=== PATIENT | female | born 1960 | race Caucasian/White ===

== ENCOUNTER → 2017-04-29 | Outpatient (CLI) | payer OTHER ==
[2017-04-29 12:48] LABS: Basophils % (A) 0 %; CH 33.1; CHCM 33.6; Eosinophils # (A) 0.1 k/uL (0-0.7); Eosinophils % (A) 1 %; HCT 40.6 % (34.0-46.0); HDW 2.23; HGB 13.4 gm/dL (11.4-16.0); Luc # (Auto) 0.14; Luc % (Auto) 2; Lymphocytes # (A) 1.7 k/uL (1.0-4.8); Lymphocytes % (A) 19 %; MCH 32.6 pg (25.0-35.0); MCV 98.7 fL (80.0-100.0); Mean Platelet Volume 6.7; Monocytes # (A) 0.6 k/uL (0-1.0); Monocytes % (A) 6 %; Neutrophils # (A) 6.5 k/uL (1.3-7.7); Neutrophils % (A) 72 %; RBC 4.11 m/uL (3.80-5.40); RDW 12.5 % (11.5-15.5); WBC (Perox) 8.64
[2017-04-29 12:57] LABS: Anion Gap 13 mmol/L; Blood Urea Nitrogen 13 mg/dL (7-17); C Reactive Protein 7.4 mg/L (<10.0); Calcium 10.1 mg/dL (8.4-10.2); Carbon Dioxide 22 mmol/L (22-30); Chloride 99 mmol/L (98-107); Glucose 103 mg/dL (74-99); Non-African American GFR(MDRD) >60 (>60 ml/min/1.73 sqM); Potassium 4.2 mmol/L (3.5-5.1); Rheumatoid Factor, Qnt <9 IU/mL (<12); Sodium 134 mmol/L (137-145); Uric Acid 6.5 mg/dL (3.7-7.4)
[2017-04-29 14:12] LABS: Erythrocyte Sedimentation Rate 28 mm/hr (0-20)
[2017-04-29 20:16] LABS: ANA w/Reflex to Titer NEGATIVE (NEGATIVE); Cyclic Citrull Pep IgG Unit <0.5 U/mL; Cyclic Citrullinated Pep IgG NEGATIVE (NEGATIVE)
== END | disposition home or self-care (01) ==
LOC: LABWHC1 11:45
PROVIDERS: ATTEND Orthopaedic Surgery
DX: M16.11 Unilateral primary osteoarthritis, right hip (principal); M47.816 Spondylosis without myelopathy or radiculopathy, lumbar region
CPT/HCPCS: 36415; 80048; 82164; 82306; 84550; 85025; 85652; 86038; 86140; 86200; 86431

== ENCOUNTER → 2017-07-15 | Outpatient (CLI) | payer OTHER ==
[2017-07-15 16:57] LABS: HCT 40.1 % (34.0-46.0); HGB 13.5 gm/dL (11.4-16.0); MCH 32.1 pg (25.0-35.0); MCHC 33.7 g/dL (31.0-37.0); MCV 95.2 fL (80.0-100.0); Mean Platelet Volume 7.1; Platelet Count 277 k/uL (150-450); RBC 4.21 m/uL (3.80-5.40); RDW 14.6 % (11.5-15.5); WBC 10.1 k/uL (3.8-10.6)
[2017-07-15 17:01] LABS: Appearance,Urine Clear (Clear); Bilirubin,Urine Negative (Negative); Blood,Urine Negative (Negative); Color,Urine Light Yellow; Glucose,Urine (UA) Negative (Negative); Ketones,Urine Negative (Negative); Leukocyte Esterase,Urine Negative (Negative); Nitrite,Urine Negative (Negative); PH, Urine 5.5 (5.0-8.0); Protein,Urine Negative (Negative); Specific Gravity,Urine 1.006 (1.001-1.035); Urobilinogen,Urine <2.0 mg/dL (<2.0)
[2017-07-15 17:07] LABS: INR 0.9 (<1.2); Prothrombin Time 9.4 sec (9.0-12.0)
[2017-07-15 17:18] LABS: ALT 47 U/L (9-52); AST 42 U/L (14-36); Albumin 4.7 g/dL (3.5-5.0); Alkaline Phosphatase 115 U/L (38-126); Anion Gap 13 mmol/L; Blood Urea Nitrogen 10 mg/dL (7-17); Calcium 10.5 mg/dL (8.4-10.2); Carbon Dioxide 27 mmol/L (22-30); Chloride 100 mmol/L (98-107); Glucose 127 mg/dL (74-99); Potassium 3.7 mmol/L (3.5-5.1); Sodium 140 mmol/L (137-145); Total Bilirubin 0.8 mg/dL (0.2-1.3); Total Protein 7.5 g/dL (6.3-8.2)
== END | disposition home or self-care (01) ==
LOC: LABPAT 15:57
PROVIDERS: ATTEND Orthopaedic Surgery
DX: Z01.812 Encounter for preprocedural laboratory examination (principal)
CPT/HCPCS: 80053; 81003; 85027; 85610; 85730; 87070

== ENCOUNTER 2017-07-26 10:48 | Inpatient (IN) | payer OTHER ==
[2017-07-21 08:14] VITALS: BMI 25.5
[~2017-07-26 10:48] MED LIST: ACETAMINOPHEN TAB 500 MG TAB PO ONE; DEXAMETHASONE SOD PHOSPHATE 10 MG/ML 1 ML VIAL IV ONE; HYDROmorphone 0.5 MG/0.5 ML SYRINGE IVP PRN; LACTATED RINGERS 1,000 ML IV SCH; LIDOCAINE 1% 20 ML VIAL (10MG/ML) FOR IV START INTRADERMA PRN; MELOXICAM 7.5 MG TAB PO ONE; MIDAZOLAM 2 MG/2 ML VIAL IV PRN; ONDANSETRON 4 MG/2 ML VIAL IVP ONE; SCOPOLAMINE 1.5MG/72HR PATCH TRANSDERM ONE; TRANEXAMIC ACID 1,000 MG in SODIUM CHLORIDE 0.9% 50 ML IVPB ONE; ceFAZolin 2 GM in SODIUM CHLORIDE 0.9% 100 ML IVPB ONE; ceFAZolin IN SWFI 2 GM/20 ML SYRINGE IVP ONE
[2017-07-26] MEDS ORDERED: ROPIVACAINE 246.25 MG, EPINEPHrine 0.5 MG, KETOROLAC 30 MG, cloNIDine HCL/PF 80 MCG, WA... MISCELLANE ONE ×5 (12:56)
[2017-07-26] MEDS ORDERED: fentaNYL (PF) 50 MCG/ML 2 ML AMP ONE (13:21)
[2017-07-26] MEDS ORDERED: PHENYLEPHRINE-0.9% NACL SYG 1 MG/10 ML SYRINGE ONE (13:21)
[2017-07-26] MEDS ORDERED: SODIUM CHLORIDE 0.9% 100 ML BAG ONE (13:21)
[2017-07-26] MEDS ORDERED: ePHEDrine 50 MG/ML 1 ML AMP ONE (13:21)
[2017-07-26] MEDS ORDERED: LIDOCAINE 1% INJ 10MG/ML (20 ML MDV) ONE (13:21)
[2017-07-26] MEDS ORDERED: TRANEXAMIC ACID 1,000 MG/10 ML VIAL ONE (13:21)
[2017-07-26] MEDS ORDERED: MIDAZOLAM 2 MG/2 ML VIAL ONE (13:21)
[2017-07-26] MEDS ORDERED: diphenhydrAMINE 50 MG/ML 1 ML VIAL ONE (13:21)
[2017-07-26] MEDS ORDERED: PROPOFOL 10 MG/ML 20 ML VIAL IV ONE (13:21)
[2017-07-26] MEDS ORDERED: LACTATED RINGERS 1,000 ML IV ONE (15:16)
[2017-07-26] MEDS ORDERED: ACETAMINOPHEN TAB 325 MG TAB PO PRN (15:21)
[2017-07-26] MEDS ORDERED: HYDROcodone/APAP 5-325MG 1 EACH TAB PO PRN (15:21)
[2017-07-26] MEDS ORDERED: HYDROmorphone 2 MG/ML 1 ML SYRINGE IVP PRN ×2 (15:21)
[2017-07-26] MEDS ORDERED: MAGNESIUM HYDROXIDE 2,400 MG/10 ML CUP PO PRN (15:21)
[2017-07-26] MEDS ORDERED: NALOXONE 0.4 MG/ML 1 ML VIAL IV PRN (15:21)
[2017-07-26] MEDS ORDERED: DIAZEPAM 5 MG TAB PO PRN (15:21)
[2017-07-26 15:32] VITALS: RESP 16
[2017-07-26] MEDS: MORPHINE SULFATE 10 MG/ML SYRINGE IVP ONE ×5 (15:43→16:09)
--- NOTE | 2017-07-26 15:46 | XR ---
EXAMINATION TYPE: XR Hip Limited RT DATE OF EXAM: 07/26/2017 CLINICAL HISTORY: Right hip pain and osteoarthritis. TECHNIQUE: Single AP portable view of right hip is obtained immediately postoperatively. COMPARISON: None. FINDINGS: Metallic hardware from right hip arthroplasty is seen and appears satisfactory in alignment and position. There is evidence of recent surgery with subcutaneous gas noted laterally. IMPRESSION: Metallic hardware from right hip arthroplasty is satisfactory in position.
--- NOTE | 2017-07-26 16:29 | P.OP ---
Date of Procedure: 07/26/17 Procedure(s) Performed: PREOPERATIVE DIAGNOSIS: Right hip severe osteoarthritis POSTOPERATIVE DIAGNOSIS: Right hip severe osteoarthritis OPERATION: Right hip total replacement arthroplasty (uncemented implantation with metal on polyethylene articulation). ANESTHESIA: Spinal ESTIMATED BLOOD LOSS: 150 ml. PIANO ASSEMBLER: Celine Plaza PA-C (assistance with: patient positioning, retraction, exposure, hemostasis, leg positioning, implantation, irrigation, closure, dressing) COMPLICATIONS: None apparent. COMPONENTS IMPLANTED: Kita continuum acetabular cup with cluster holes; continuum longevity 15 elevated liner, 32 mm id; Kita VerSys Fiber Metal stem ; VerSys 32 mm femoral head with +7 mm neck length extension INDICATIONS: Anle is a 56-year-old female with significant end-stage osteoarthritis involving the right hip and commensurate severe symptoms. She presents to the operating room today for total hip replacement. I have discussed the steps of the operation as well as potential risks and complications as being inclusive of, but not limited to: Leading, infection, scarring, discomfort, or vessel and/or nerve damage, need for further surgery, loosening, dislocation, wear, osteolysis, limb length inequality, fracture, blood clot, pulmonary embolism, , persistent limp, and other risks. The patient is aware these risks and wishes to proceed with surgery and has signed a consent form. PROCEDURE: After appropriate consent was obtained, the patient was taken to the operating room and placed in supine position. Spinal anesthetic was administered and after confirmation of adequate anesthesia, the patient was placed into the lateral decubitus position with the right side up. Care was taken to make sure that all pressure points were adequately padded and he was stabilized to the table with a Jarred hip positioner. The right hip was prepped and draped in the usual aseptic fashion using a combination of ChloraPrep and alcohol. [place] drape was used for the case and the patient received intravenous antibiotics prior to the incision. "Time out" was called , confirming patient identity, side, procedure, availability of implants and administration of antibiotics. The incision was created directly over the greater trochanter and carried slightly posteriorly for a posterior approach to the hip. The incision was then deepened down to subcutaneous tissue and fascia damaris. Fascia damaris was split in line with the incision and split proximally along the fibers of the gluteus anabell. The underlying fibers of the muscle were teased apart using finger dissection and bleeding vessels were picked up and coagulated. Retractor was then placed posteriorly consisting of a blunt [place]. The short external rotators and capsule were exposed using good visualization of the attachment of the external rotators to the femur was established. The short external rotators and capsule were released using electrocautery from their femoral attachments. A hockey stick shaped incision was created in the capsule. Joint fluid was evacuated and the patient's hip was able to be dislocated fairly easily. The patient's femoral head was severely arthritic with eburnated bone present and a 360 degrees [place] of osteophytes. The femoral neck cut was created approximately 1 cm superior to the lesser trochanter using a reciprocating saw. The femoral head and neck fragment was removed and attention was then directed to the acetabulum. An anterior acetabular retractor was applied followed by posterior retraction of the capsule with a Meyer[place] retractor. This afforded good visualization into the acetabular cavity. Soft tissue was removed and residual cartilage within the acetabular vault was removed using a curette. Labrum was removed using a long-handled knife. Attention was then directed to reaming. The size 44 reamer was used first, followed by increasing increments until the final size reamer was used. Please see the implantation sheet for exact sizes used for the components. Once the final reamer had been utilized to expand the socket it was noted that there was a good supportive bone around the acetabular socket and no further reaming needed to be performed. The trial the same size as the last reamer used was then impacted into the acetabular vault and found to have good fit. The acetabular component, one size (2mm) greater than the trial was then called for. The cluster holes were placed posteriorly and the component was impacted in a position of approximately 40 degrees abduction and 20 degrees anteversion. This matched this patient's [place] anteversion and it was noted that the cup had excellent stability without need for additional screw fixation. Attention was then directed to the acetabular liner. The anteversion and abduction angle of the component was noted to be very good. A 15 elevated liner was used and locked into position with the elevation posterior superior. Osteophytes around the posterior and inferior aspect of the acetabulum were trimmed as necessary to prevent any impingement. Attention was then directed back to the proximal femur. Retractors were placed around the proximal femur and box osteotome was used followed by canal finder and trochanteric reamer. Cylindrical reaming was performed. Progressive broaching was then performed starting with a #10 broach and progressing final size, in a position of 15 degrees anteversion. [place] anteversion was within 5 degrees of stem position. The final size broach had excellent fit and fill of the patient's metaphysis and diaphysis. Trial reduction was then performed starting with size 32 mm femoral head and various neck combination of stability , limb length equality, and soft tissue tension. Trial components were then removed. The canal was lavaged and the final size femoral stem component was impacted into position. The implant fit very well and had excellent stability. The femoral head was then impacted onto the Armas taper. Blood and debris were removed from the acetabular component and the hip was then reduced and checked for stability, limb length and soft tissue tension. These parameters found to be satisfactory, the wound was then thoroughly irrigated with normal saline. Final hemostasis was obtained using electrocautery and IV tranexamic acid, 1 g given at the time of prepping and draping, and another 1 g given at the time of closure. Local anesthetic solution consisting of ropivacaine with epinephrine, clonidine, and ketorolac was also used throughout the case targeting the capsule , fascia, and skin. Closure of the capsule was performed meticulously using #3 Vicryl suture. Four [id number] sutures were placed in the posterior capsule along with repair of the external rotators. The fascia damaris was then repaired using combination of #3 Vicryl suture in interrupted fashion and Quill and running fashion. 2-0 Vicryl suture was used for the subcutaneous tissues and 3-0 Quill for the skin. Dermabond or Steri-Strips were then applied. The patient tolerated the procedure well. There were no complications and the wound bed was dry and there was no need for drain placement. Sterile dressing was then applied and the patient was carefully removed from the operating room table , placed on the stretcher and was taken to the recovery room in stable condition. Sponge and needle counts were correct.
[2017-07-26] MEDS ORDERED: SYMBICORT 160-4.5 MCG INHALER INHALATION PRN (18:33)
[2017-07-26] MEDS ORDERED: traMADol 50 MG TAB PO PRN (18:33)
[2017-07-26] MEDS: LACTATED RINGERS 1,000 ML IV SCH (19:40)
[2017-07-26] MEDS: hydrOXYzine PAMOATE 25 MG CAP PO PRN (19:40)
[2017-07-26] MEDS: MONTELUKAST 10 MG TAB PO SCH (19:40)
[2017-07-26] MEDS: HYDROcodone/APAP 5-325MG 1 EACH TAB PO PRN (19:41)
[2017-07-26] MEDS: SENNOSIDES-DOCUSATE SODIUM 1 EACH TAB PO SCH (19:41)
[2017-07-26] MEDS: ceFAZolin IN SWFI 2 GM/20 ML SYRINGE IVP SCH (20:25)
[2017-07-26] MEDS ORDERED: ALPRAZolam 0.25 MG TAB PO PRN (20:54)
[2017-07-26] MEDS ORDERED: oxyCODONE ER 10 MG TAB.ER.12H PO SCH (21:00)
--- NOTE | 2017-07-26 21:50 | CONS ---
CONSULTATION REASON FOR CONSULTATION: Advice regarding asthma and other multiple medical issues requested by Dr. Bah. HISTORY OF PRESENT ILLNESS: This 56-year-old woman with a past medical history of multiple medical problems including asthma, GERD, hypertension, DJD being followed by primary physician in the outpatient setting was admitted after right total hip joint arthroplasty by Dr. Bah. There is no history of fever, rigors or chills. No headache, loss of consciousness, and, nausea and vomiting or diarrhea, fever at this time. PAST HISTORY: Asthma, GERD, hypertension, DJD, history of hypothyroidism. MEDICATIONS: Prior to admission include home medications are as follows: 1. Ultram 50 mg q.6h p.r.n. 2. Prilosec 20 mg with breakfast. 3. Aleve 220 mcg b.i.d. p.r.n. 4. Multivitamin 1 p.o. daily. 5. Singular 10 mg q.h.s. 6. Zestoretic 1 tab p.o. daily. 7. Synthroid 50 mcg p.o. daily. 8. Lasix 40 mg. 9. Temovate 1 application daily. 10.Vitamin D3 2000 q.h.s. 11.Symbicort 160/4.5 two puffs b.i.d. 12.Biotin 5 mg p.o. daily. 13.Senokot-S 1 tab p.o. b.i.d. 14.[place] 5 mg 1 tablets q.4h p.r.n. 15.Arixtra 2.5 mg p.o. subcu daily. 16.Aspirin 325 mg p.o. b.i.d. ALLERGIES: LATEX. FAMILY HISTORY: History of cancer in the family. SOCIAL HISTORY: History of smoking on a daily basis. Occasional alcohol intake. REVIEW OF SYSTEMS: No diminished. No diminished hearing. Cardiovascular: No angina. Respirations: No cough or hemoptysis. GI no nausea or vomiting. no dysuria. Nervous system: No numbness or weakness. Allergy/Immunology: No asthma or hayfever. Musculoskeletal as mentioned earlier. Dermatology: Negative. Rheumatology: Negative. Hematology/Oncology: No history of anemia. Endocrine: Hypothyroidism. Constitutional: As mentioned earlier. DERMATOLOGY: Negative. Rheumatology: Negative. Psychiatric: As mentioned earlier. PHYSICAL EXAM: Patient is alert, oriented x3. Pulse is 81. Blood pressure 90/52, respirations 16, temperature 97.8, pulse ox 94% on room air. HEENT: Conjunctivae normal. Neck is no jugular venous distention. Cardiovascular: S1, S2. Respiratory: Breath sounds diminished in the bases. No rhonchi. No crackles. ABDOMEN: Soft. Legs status post surgery. Central nervous system: Higher functions as mentioned earlier. Moves all four extremities. No focal deficits. Lymphatics: No lymph nodes palpable in the neck, axillae or groin. SKIN: No ulcer, rash or bleeding. LABS: CBC BMP within normal limits. ASSESSMENT: 1. Status post right total hip the age arthroplasty for severe degenerative joint disease. 2. Asthma history. 3. Hypertension. 4. Degenerative joint disease. 5. Hypothyroidism. 6. History of bowel obstruction. 7. History of anxiety. 8. History of nicotine dependence. RECOMMENDATIONS AND DISCUSSION: This 56-year-old woman who presented with multiple medical issues, at this time I recommend to continue current medications, continue symptomatic treatment. Otherwise, I recommend to resume the home medications. Also recommend add Xanax for anxiety. Otherwise, DVT prophylaxis. Incentive spirometry. Follow the patient closely. The patient may be asked to follow up with primary physician closely. Thank you Dr. Bah, for letting us participate in the care of this patient. MMODL / IJN: [id number] /
[2017-07-27] MEDS: HYDROmorphone 2 MG/ML 1 ML SYRINGE IVP PRN ×2 (00:29→04:34)
[2017-07-27] MEDS: LACTATED RINGERS 1,000 ML IV SCH ×3 (00:31→21:53)
[2017-07-27] MEDS: diphenhydrAMINE 25 MG CAP PO PRN ×3 (01:05→18:00)
[2017-07-27] MEDS: ceFAZolin IN SWFI 2 GM/20 ML SYRINGE IVP SCH (04:37)
[2017-07-27] MEDS: LEVOTHYROXINE 50 MCG TAB PO SCH ×2 (05:19→05:30)
[2017-07-27 07:20] LABS: Anion Gap 10 mmol/L; Basophils % (A) 0 %; Blood Urea Nitrogen 13 mg/dL (7-17); Calcium 10.3 mg/dL (8.4-10.2); Carbon Dioxide 26 mmol/L (22-30); Chloride 100 mmol/L (98-107); Eosinophils % (A) 0 %; Glucose 125 mg/dL (74-99); HCT 34.9 % (34.0-46.0); HGB 11.8 gm/dL (11.4-16.0); Lymphocytes # (A) 0.8 k/uL (1.0-4.8); Lymphocytes % (A) 6 %; MCH 33.5 pg (25.0-35.0); MCHC 33.8 g/dL (31.0-37.0); MCV 99.2 fL (80.0-100.0); Mean Platelet Volume 6.6; Monocytes # (A) 0.9 k/uL (0-1.0); Monocytes % (A) 6 %; Neutrophils # (A) 12.3 k/uL (1.3-7.7); Neutrophils % (A) 87 %; Platelet Count 247 k/uL (150-450); Potassium 4.6 mmol/L (3.5-5.1); RBC 3.52 m/uL (3.80-5.40); Sodium 136 mmol/L (137-145); WBC 14.2 k/uL (3.8-10.6)
[2017-07-27] MEDS: PANTOPRAZOLE 40 MG TABLET PO SCH (07:22)
[2017-07-27] MEDS: MULTIVITAMINS, THERA 1 EACH TAB PO SCH (09:35)
[2017-07-27] MEDS: LISINOPRIL-HCTZ 20-12.5 MG 1 EACH TAB PO SCH (09:35)
[2017-07-27] MEDS: FUROSEMIDE 40 MG TAB PO SCH (09:35)
[2017-07-27] MEDS: HYDROcodone/APAP 5-325MG 1 EACH TAB PO PRN ×2 (09:43→17:59)
[2017-07-27] MEDS: hydrOXYzine PAMOATE 25 MG CAP PO PRN (09:44)
[2017-07-27] MEDS: MELOXICAM 7.5 MG TAB PO SCH (10:11)
[2017-07-27] MEDS: CLOBETASOL PROP 0.05% CR 15GM TOPICAL SCH (10:12)
[2017-07-27] MEDS: FONDAPARINUX 2.5 MG/0.5 ML SYRINGE SQ SCH (10:12)
--- NOTE | 2017-07-27 10:53 | P.PN ---
Subjective Progress Note Date: 07/27/17 Principal diagnosis: Status post right total hip arthroplasty This is a 56 year-old female post left total hip arthroplasty. This is post-op day 1. The patient was evaluated in the recliner chair at the bedside today. The patient denies nausea, vomiting, abdominal pain, shortness of breath, and chest pain this morning. She states her pain is controlled at this time. She states the Cordova does work for her pain but it causes itchiness. The patient has been up with physical therapy. Objective - Vital Signs Vital signs: Vital Signs Temp 98.4 F 07/27/17 07:36 Pulse 69 07/27/17 07:36 Resp 16 07/27/17 07:36 BP 115/62 07/27/17 07:36 Pulse Ox 94 L 07/27/17 02:21 Intake & Output 07/26/17 07/27/17 07/27/17 18:59 06:59 18:59 Intake Total 1250 800 120 Output Total 100 450 Balance 1150 350 120 Weight 76.204 kg Intake: IV 1250 Intake, IV Titration 800 Amount Lactated Ringers 1,000 ml 800 @ 100 mls/hr IV .Q10H WALKER Rx#:[id number] Oral 120 Output: Urine 450 Estimated Blood Loss 100 Other: Voiding Method Bedside Commode - Exam The patient does not appear in acute distress. Alert and orientated x3. Dressing is clean dry and intact. Incision appears fine with no erythema or active drainage. Calf is soft and nontender. Good foot and ankle motion without difficulty. Sensation and circulatory status is intact. - Labs CBC & Chem 7: 07/27/17 06:47 07/27/17 06:47 Labs: Abnormal Lab Results - Last 24 Hours (Table) 07/27/17 07/27/17 Range/Units 06:47 06:47 WBC 14.2 H (3.8-10.6) k/uL RBC 3.52 L (3.80-5.40) m/uL Neutrophils # 12.3 H (1.3-7.7) k/uL Lymphocytes # 0.8 L (1.0-4.8) k/uL Sodium 136 L (137-145) mmol/L Glucose 125 H (74-99) mg/dL Calcium 10.3 H (8.4-10.2) mg/dL Assessment and Plan (1) Primary osteoarthritis of right hip Current Visit: Yes Status: Acute Code(s): M16.11 - UNILATERAL PRIMARY OSTEOARTHRITIS, RIGHT HIP SNOMED Code(s): 474519196 (2) Status post total replacement of right hip Current Visit: Yes Status: Acute Code(s): Z96.641 - PRESENCE OF RIGHT ARTIFICIAL HIP JOINT SNOMED Code(s): 473678570315 Plan: 1. Continue pain control with Cordova and Benadryl 2. Anticoagulation with Arixtra 3. Continue physical therapy and ambulation 4. Anticipate discharge home with homecare tomorrow.
[2017-07-27] MEDS ORDERED: MULTIVITAMINS, THERA 1 EACH TAB PO SCH (12:00)
[2017-07-27] MEDS: SYMBICORT 160-4.5 MCG INHALER INHALATION SCH ×2 (12:11→20:08)
[2017-07-27] MEDS: ALBUTEROL NEBULIZED 2.5 MG/3 ML INHALATION SCH ×3 (12:15→19:49)
[2017-07-27] MEDS ORDERED: HYDROmorphone 4 MG/ML 1 ML SYRINGE IVP PRN ×2 (12:42→12:43)
--- NOTE | 2017-07-27 13:21 | PN ---
PROGRESS NOTE DATE OF SERVICE: 07/27/2017 This 56-year-old woman who was admitted with right joint arthroplasty is complaining of pain. Otherwise no chest pain. No palpitations. No fever. The patient also complains of wheezing. The patient also developed some rash and possible allergic reaction last night. PHYSICAL EXAM: On exam, alert and oriented x3. Pulse 69, blood pressure 115/62, respirations 16 , temperature 98.4, pulse ox 94% on room. HEENT: Conjunctivae normal. Oral mucosa moist. NECK: No jugular venous distention. No lymph node enlargement. CARDIOVASCULAR: S1 and S2 muffled. RESPIRATORY: Breath sounds diminished at the bases. A few scattered rhonchi and crackles. ABDOMEN: Soft, nontender. LEGS: Status post surgery. NERVOUS SYSTEM: Higher function as mentioned. Moves all 4 limbs. No focal motor or sensory deficits. LYMPHATICS: No lymphadenopathy of the neck, axillae or groin. SKIN: No ulcer, rash or bleeding. LAB STUDIES: WBC 14.2. Sodium 136. Calcium is 10.3. ASSESSMENT: 1. Status post right total hip joint arthroplasty for severe degenerative joint disease. 2. Bronchial asthma. 3. Hypertension. 4. Degenerative joint disease. 5. Hypothyroidism. 6. History of bowel obstruction. 7. History of anxiety. 8. History of nicotine dependence. 9. Increased WBC possibly reactive. RECOMMENDATIONS AND DISCUSSION: Recommend to continue current medications. Continue symptomatic treatment. Recommend UA with micro. Course of bronchodilators. Continue to monitor. DVT prophylaxis. Incentive spirometry. Further recommendations to follow. MMODL / IJN: [id number] / MTDD
[2017-07-27 13:51] LABS: Appearance,Urine Clear (Clear); Bilirubin,Urine Negative (Negative); Blood,Urine Negative (Negative); Color,Urine Light Yellow; Glucose,Urine (UA) Negative (Negative); Ketones,Urine Negative (Negative); Leukocyte Esterase,Urine Negative (Negative); Nitrite,Urine Negative (Negative); PH, Urine 5.5 (5.0-8.0); Protein,Urine Negative (Negative); Specific Gravity,Urine 1.005 (1.001-1.035); Urobilinogen,Urine <2.0 mg/dL (<2.0)
[2017-07-27] MEDS: HYDROmorphone 4 MG/ML 1 ML SYRINGE IVP PRN ×2 (14:06→21:47)
[2017-07-27] MEDS ORDERED: SYMBICORT 160-4.5 MCG INHALER INHALATION SCH (20:00)
[2017-07-27] MEDS: SENNOSIDES-DOCUSATE SODIUM 1 EACH TAB PO SCH (21:47)
[2017-07-27] MEDS: MONTELUKAST 10 MG TAB PO SCH (21:47)
[2017-07-27] MEDS ORDERED: TEMAZEPAM 15 MG CAP PO PRN (22:00)
[2017-07-28] MEDS: HYDROmorphone 4 MG/ML 1 ML SYRINGE IVP PRN ×2 (01:40→07:53)
[2017-07-28] MEDS: LEVOTHYROXINE 50 MCG TAB PO SCH (05:53)
[2017-07-28] MEDS: HYDROcodone/APAP 5-325MG 1 EACH TAB PO PRN (05:57)
[2017-07-28] MEDS: diphenhydrAMINE 25 MG CAP PO PRN (05:57)
[2017-07-28] MEDS: ALBUTEROL NEBULIZED 2.5 MG/3 ML INHALATION SCH ×2 (07:14→13:32)
[2017-07-28] MEDS: SYMBICORT 160-4.5 MCG INHALER INHALATION SCH (07:14)
[2017-07-28 07:40] LABS: Basophils % (A) 0 %; Eosinophils # (A) 0.2 k/uL (0-0.7); Eosinophils % (A) 2 %; HCT 32.5 % (34.0-46.0); HGB 10.7 gm/dL (11.4-16.0); Lymphocytes % (A) 22 %; MCH 32.9 pg (25.0-35.0); MCV 99.8 fL (80.0-100.0); Mean Platelet Volume 6.4; Monocytes # (A) 0.8 k/uL (0-1.0); Monocytes % (A) 8 %; Neutrophils % (A) 65 %; Platelet Count 209 k/uL (150-450); RBC 3.26 m/uL (3.80-5.40); RDW 13.1 % (11.5-15.5); WBC 9.1 k/uL (3.8-10.6)
[2017-07-28] MEDS: PANTOPRAZOLE 40 MG TABLET PO SCH (08:56)
[2017-07-28] MEDS: MELOXICAM 7.5 MG TAB PO SCH (08:56)
[2017-07-28] MEDS: FUROSEMIDE 40 MG TAB PO SCH (08:56)
[2017-07-28] MEDS: LISINOPRIL-HCTZ 20-12.5 MG 1 EACH TAB PO SCH (08:56)
[2017-07-28] MEDS: FONDAPARINUX 2.5 MG/0.5 ML SYRINGE SQ SCH (08:56)
[2017-07-28] MEDS: LACTATED RINGERS 1,000 ML IV SCH (10:08)
[2017-07-28] MEDS: CLOBETASOL PROP 0.05% CR 15GM TOPICAL SCH (11:10)
[2017-07-28] MEDS: MULTIVITAMINS, THERA 1 EACH TAB PO SCH (11:10)
[2017-07-28] MEDS ORDERED: HYDROcodone/APAP 7.5-325MG 1 EACH TAB PO PRN ×2 (11:13→11:14)
--- NOTE | 2017-07-28 11:38 | P.DS ---
Providers Date of admission: 07/26/17 10:48 Expected date of discharge: 07/28/17 Attending physician: Devendra Bah Consults: 07/26/17 15:21 Consult Physician Routine Consulting Provider: Ana Pierce Consult Reason/Comments: medical management Do you want consulting provider notified?: Yes Primary care physician: Hua Saul - Discharge Diagnosis(es) (1) Osteoarthritis of right hip Current Visit: Yes Status: Acute (2) Status post total replacement of right hip Current Visit: Yes Status: Acute Hospital Course: This is a 72-year-old female who was last seen in our office with complaint of continued right hip pain. The patient has a known history of degenerative arthritis of the right hip and presents to discuss surgical options. After discussion and consideration the patient elects to proceed with total right hip arthroplasty. She is seen preoperatively by her family physician and cleared for surgery. The patient is admitted to [facility] for total right hip arthroplasty on 07/26/17. The procedure is performed without complication or sequelae. The patient is doing well postoperatively. Vital signs and postoperative labs are stable. The incision looks good with no sign of infection. The patient is ambulating with a walker with minimal assistance. The patient is discharged to home today in good condition. Please see discharge orders. Please refer to the med rec for accurate list of medications. Plan - Discharge Summary Discharge Rx Participant: Yes New Discharge Prescriptions: New Fondaparinux [Arixtra] 2.5 mg SQ DAILY #5 syringe Sennosides-Docusate Sodium [Senokot-S] 1 tab PO BID #60 tablet Aspirin 325 mg PO BID #120 tab HYDROcodone/APAP 7.5-325MG [[place] 7.5-325] 1 - 2 tab PO Q4-6H PRN #90 tab PRN Reason: Pain No Action Montelukast [Singulair] 10 mg PO HS Cholecalciferol [Vitamin D3] 2,000 unit PO HS Omeprazole [PriLOSEC] 20 mg PO AC-BRKFST Levothyroxine Sodium [Synthroid] 50 mcg PO DAILY Budesonide-Formot 160-4.5 Mcg [Symbicort 160-4.5 Mcg Inhaler] 2 puff INHALATION RT-BID PRN PRN Reason: Dyspnea traMADol HCL [Ultram] 50 mg PO Q6HR PRN PRN Reason: Pain Naproxen Sodium [Aleve] 220 mg PO BID PRN PRN Reason: Pain Lisinopril-Hctz 20-12.5 mg [Zestoretic 20-12.5] 1 tab PO DAILY Furosemide [Lasix] 40 mg PO DAILY Multivit-Min/Iron/Folic/Lutein [[place] Silver Women Tablet] 1 tab PO DAILY Clobetasol Propionate [Temovate 0.05% Cream] 1 applic TOPICAL DAILY Biotin 5,000 mcg PO DAILY Discharge Medication List Budesonide-Formot 160-4.5 Mcg [Symbicort 160-4.5 Mcg Inhaler] 2 puff INHALATION RT-BID PRN 08/01/14 [History] Cholecalciferol [Vitamin D3] 2,000 unit PO HS 08/01/14 [History] Levothyroxine Sodium [Synthroid] 50 mcg PO DAILY 08/01/14 [History] Montelukast [Singulair] 10 mg PO HS 08/01/14 [History] Omeprazole [PriLOSEC] 20 mg PO AC-BRKFST 08/01/14 [History] Biotin 5,000 mcg PO DAILY 07/21/17 [History] Clobetasol Propionate [Temovate 0.05% Cream] 1 applic TOPICAL DAILY 07/21/17 [ History] Furosemide [Lasix] 40 mg PO DAILY 07/21/17 [History] Lisinopril-Hctz 20-12.5 mg [Zestoretic 20-12.5] 1 tab PO DAILY 07/21/17 [History ] Multivit-Min/Iron/Folic/Lutein [Centrum Silver Women Tablet] 1 tab PO DAILY [History] Naproxen Sodium [Aleve] 220 mg PO BID PRN 07/21/17 [History] traMADol HCL [Ultram] 50 mg PO Q6HR PRN 07/21/17 [History] Aspirin 325 mg PO BID #120 tab 07/26/17 [Rx] Fondaparinux [Arixtra] 2.5 mg SQ DAILY #5 syringe 07/26/17 [Rx] Sennosides-Docusate Sodium [Senokot-S] 1 tab PO BID #60 tablet 07/26/17 [Rx] HYDROcodone/APAP 7.5-325MG [[place] 7.5-325] 1 - 2 tab PO Q4-6H PRN #90 tab [Rx] Follow up Appointment(s)/Referral(s): Celine Plaza, JUAN F [PHYSICIAN JUDO INSTRUCTOR] - 2 Weeks Activity/Diet/Wound Care/Special Instructions: 50% wt bearing RLE w walker. May shower if no drainage from incision. Maintain hip precautions. Discharge Disposition: HOME WITH HOME HEALTH SERVICES
[2017-07-28] MEDS ORDERED: INFLUENZA VACCINE (6 MOS+) 60 MCG/0.5 ML SYRINGE IM ONE (13:03)
--- NOTE | 2017-07-28 13:19 | PN ---
PROGRESS NOTE DATE OF SERVICE: 07/28/2017 This 56-year-old woman who was admitted after right hip arthroplasty and severe DJD is being closely monitored. No chest pain. No palpitations. No fever. The patient had some pain last night. PHYSICAL EXAMINATION: On exam, alert and oriented x3. Pulse 75, blood pressure 125/68, respirations 16, temperature 98.4, pulse ox 93% room air. HEENT: Conjunctivae normal. NECK: No jugular venous distention. CARDIOVASCULAR: S1 and S2 muffled. RESPIRATORY: Breath sounds diminished at the bases. No rhonchi, no crackles. ABDOMEN: Soft, nontender. LEGS: Status post surgery. NERVOUS SYSTEM: No focal deficits. LABS: WBC 9.1, hemoglobin 10.7. ASSESSMENT: 1. Status post right total hip joint arthroplasty for severe degenerative joint disease. 2. Bronchial asthma. 3. Hypertension. 4. Degenerative joint disease history. 5. Hypothyroidism. 6. History of bowel obstruction. 7. History of anxiety. 8. History of nicotine dependence. 9. Increased WBC possibly reactive improved. RECOMMENDATIONS AND DISCUSSION: Recommend to continue current medications, continue symptomatic treatment. Otherwise at this time, I recommend continue the current pain management, DVT prophylaxis. Resume the home medications if discharged per Ortho. Further recommendations to follow. MMODL / IJN: [id number] /
[2017-07-28 14:15] VITALS: BP 98/61; PULSE 80; TEMP 98.1
[2017-07-28] MEDS ORDERED: HYDROmorphone 2 MG TAB PO PRN ×2 (15:15)
[2017-07-28] MEDS ORDERED: HYDROmorphone 4 MG TABLET PO PRN (15:16)
== END 2017-07-28 15:55 | disposition home health service (06) | DRG 470 ==
LOC: 2ORMAIN 10:48 → 3SUR 15:09
PROVIDERS: ADMIT Orthopaedic Surgery; ATTEND Orthopaedic Surgery
PROC: 0SR902A Replacement of Right Hip Joint with Metal on Polyethylene Synthetic Substitute, Uncemented, Open Approach (ICD-10-PCS; 2017-07-26)
PROC: 3E0234Z Introduction of Serum, Toxoid and Vaccine into Muscle, Percutaneous Approach (ICD-10-PCS; principal; 2017-07-28)
DX: M16.11 Unilateral primary osteoarthritis, right hip (principal); Z96.642 Presence of left artificial hip joint; E03.9 Hypothyroidism, unspecified; I10 Essential (primary) hypertension; Z23 Encounter for immunization; J45.909 Unspecified asthma, uncomplicated; K21.9 Gastro-esophageal reflux disease without esophagitis; R21 Rash and other nonspecific skin eruption; Z79.51 Long term (current) use of inhaled steroids; Z79.899 Other long term (current) drug therapy; Z86.59 Personal history of other mental and behavioral disorders; Z87.891 Personal history of nicotine dependence; Z91.040 Latex allergy status
CPT/HCPCS: 73501; 80048; 81003; 85025; 86850; 86900; 86901; 88300; 90686; 94640

== ENCOUNTER 2018-06-06 20:31 | Emergency (ER) | payer OTHER ==
[2018-06-06 20:46] VITALS: PULSE 94
[2018-06-06] MEDS ORDERED: LIDOCAINE 1% INJ 10MG/ML (20 ML MDV) SQ ONE (21:06)
[2018-06-06] MEDS ORDERED: DIPH,PERTUS(ACELL)TETVAC-LF 0.5 ML VIAL IM ONE (21:19)
[2018-06-06] MEDS ORDERED: HYDROcodone/APAP 7.5-325MG 1 EACH TAB PO ONE (22:12)
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
[2018-06-06 22:47] VITALS: BP 152/74; RESP 18; TEMP 98.2
== END 2018-06-06 22:46 | disposition home or self-care (01) ==
LOC: EC 20:31
DX: S81.812A Laceration without foreign body, left lower leg, initial encounter (principal); Z23 Encounter for immunization; J45.909 Unspecified asthma, uncomplicated; K21.9 Gastro-esophageal reflux disease without esophagitis; I10 Essential (primary) hypertension; M19.90 Unspecified osteoarthritis, unspecified site; E07.9 Disorder of thyroid, unspecified; F41.9 Anxiety disorder, unspecified; F17.200 Nicotine dependence, unspecified, uncomplicated; Z79.899 Other long term (current) drug therapy; Z88.2 Allergy status to sulfonamides; Z91.040 Latex allergy status; W22.8XXA Striking against or struck by other objects, initial encounter; Y93.39 Activity, other involving climbing, rappelling and jumping off
CPT/HCPCS: 90715; 99282; 12001; 90471; J2001

== ENCOUNTER 2018-06-11 09:37 | Emergency (ER) | payer OTHER ==
[2018-06-11 09:41] VITALS: BP 129/79; PULSE 70; RESP 18; TEMP 97.5
[2018-06-11] MEDS ORDERED: CEPHALEXIN 500MG STARTER PACK 4 CAP BTL PO STA (10:11)
--- NOTE | 2018-06-11 10:14 | ED ---
General Adult HPI - General Chief complaint: Recheck/Abnormal Lab/Rx Stated complaint: LEFT LEG INFECTION Time Seen by Provider: 06/11/18 09:56 Source: patient Mode of arrival: ambulatory Limitations: no limitations - History of Present Illness Initial comments: 57-year-old female patient presents to the emergency department today for evaluation of increased redness, swelling, and purulent drainage from a laceration to the left lower leg. Patient states on Wednesday she cut her leg on her vehicle door. She was seen and evaluated in the emergency department did have stitches placed. Patient states over the last couple of days the area surrounding the wound has become inflamed. States that she did start having drainage this morning. She denies any fevers or chills with this. Denies any nausea or vomiting. Denies any history of immunosuppression or diabetes. Patient denies any recent rash, shortness breath, chest pain, abdominal pain, nausea, vomiting, diarrhea, constipation, back pain, numbness, tingling, dizziness, weakness, hematuria, dysuria, urinary urgency, urinary frequency, headache, visual changes, or any other complaints. - Related Data Home Medications Medication Instructions Recorded Confirmed Budesonide-Formot 160-4.5 Mcg 2 puff INHALATION RT-BID PRN 08/01/14 06/06/18 [Symbicort 160-4.5 Mcg Inhaler] Cholecalciferol [Vitamin D3] 2,000 unit PO HS 08/01/14 06/06/18 Levothyroxine Sodium [Synthroid] 50 mcg PO DAILY 08/01/14 06/06/18 Montelukast [Singulair] 10 mg PO HS 08/01/14 06/06/18 Omeprazole [PriLOSEC] 20 mg PO AC-BRKFST 08/01/14 06/06/18 Biotin 5,000 mcg PO DAILY 07/21/17 06/06/18 Clobetasol Propionate [Temovate 1 applic TOPICAL DAILY 07/21/17 06/06/18 0.05% Cream] Furosemide [Lasix] 40 mg PO DAILY 07/21/17 06/06/18 Lisinopril-Hctz 20-12.5 mg 1 tab PO DAILY 07/21/17 06/06/18 [Zestoretic 20-12.5] Multivit-Min/Iron/Folic/Lutein 1 tab PO DAILY 07/21/17 06/06/18 [Centrum Silver Women Tablet] Naproxen Sodium [Aleve] 220 mg PO BID PRN 07/21/17 06/06/18 traMADol HCL [Ultram] 50 mg PO Q6HR PRN 07/21/17 06/06/18 Previous Rx's Medication Instructions Recorded Aspirin 325 mg PO BID #120 tab 07/26/17 Fondaparinux [Arixtra] 2.5 mg SQ DAILY #5 syringe 07/26/17 Sennosides-Docusate Sodium 1 tab PO BID #60 tablet 07/26/17 [Senokot-S] HYDROcodone/APAP 7.5-325MG [[place] 1 - 2 tab PO Q4-6H PRN #90 tab 07/28/17 7.5-325] Ibuprofen 800 mg PO Q8H PRN 7 Days #21 tablet 06/06/18 Cephalexin [Keflex] 500 mg PO Q6H #40 cap 06/11/18 Ibuprofen [Motrin] 600 mg PO Q8HR PRN #30 tab 06/11/18 Allergies Allergy/AdvReac Type Severity Reaction Status Date / Time latex Allergy Anaphylaxis Verified 06/11/18 09:42 Sulfa (Sulfonamide Allergy Anaphylaxis Verified 06/11/18 09:42 Antibiotics) Review of Systems ROS Statement: Those systems with pertinent positive or pertinent negative responses have been documented in the HPI. ROS Other: All systems not noted in ROS Statement are negative. Past Medical History Past Medical History: Asthma, GERD/Reflux, Hypertension, Osteoarthritis (OA), Skin Disorder, Thyroid Disorder Additional Past Medical History / Comment(s): past hx bowel obstruction, hx. eczema-hands, frequent leg swelling History of Any Multi-Drug Resistant Organisms: None Reported Past Surgical History: Appendectomy Additional Past Surgical History / Comment(s): laparotomy to repair lacerated rt iliac artery, esophageal dilation, ovarian cyst removed, TRH Past Anesthesia/Blood Transfusion Reactions: Motion Sickness Past Psychological History: Anxiety Smoking Status: Current every day smoker Past Alcohol Use History: Occasional Past Drug Use History: None Reported - Past Family History Father Family Medical History: Cancer Mother Family Medical History: Deep Vein Thrombosis (DVT) General Exam Limitations: no limitations General appearance: alert, in no apparent distress, other (This is a well- developed, well-nourished adult female patient in no acute distress. Vital signs upon presentation are temperature 97.5F, pulse 70, respirations 18, blood pressure 129/79, pulse ox 97% on room air.) Eye exam: Present: normal appearance, PERRL, EOMI. Absent: scleral icterus, conjunctival injection, periorbital swelling ENT exam: Present: normal exam, normal oropharynx, mucous membranes moist Respiratory exam: Present: normal lung sounds bilaterally. Absent: respiratory distress, wheezes, rales, rhonchi, stridor Cardiovascular Exam: Present: regular rate, normal rhythm, normal heart sounds. Absent: systolic murmur, diastolic murmur, rubs, gallop, clicks Extremities exam: Present: full ROM, normal capillary refill, other (Patient has flap-like laceration well approximated with sutures to the left lower leg. There is surrounding erythema, purulent drainage noted to dressing. There is surrounding tenderness.). Absent: normal inspection, tenderness, pedal edema, joint swelling, calf tenderness Neurological exam: Present: alert, oriented X3, CN II-XII intact Psychiatric exam: Present: normal affect, normal mood Skin exam: Present: warm, dry, intact, normal color. Absent: rash Course Vital Signs 06/11/18 09:39 Temperature 97.5 F L Pulse Rate 70 Respiratory 18 Rate Blood Pressure 129/79 O2 Sat by Pulse 97 Oximetry Medical Decision Making - Medical Decision Making 57-year-old female patient presented to the emergency department today for evaluation of infected laceration to the left lower leg. Physical examination did reveal a laceration well approximated with sutures. There is surrounding erythema and presence of purulent drainage and a dressing. Patient is afebrile , vital signs stable. We will start Keflex. This has been cultured. She is instructed to follow-up with her primary care physician for recheck of the wound in 1-2 days. Return parameters were discussed in detail. She verbalizes understanding and agrees with this plan. Disposition Clinical Impression: Laceration of left lower leg with infection Disposition: HOME SELF-CARE Condition: Good Instructions: Wound Infection (ED) Additional Instructions: Keep wound clean and dry. Change dressing when it becomes soiled. Complete antibiotic prescription in full. Monitor for increasing redness and pain. Follow up with your physician for recheck in 1-2 days. Return immediately for any new, worsening, or concerning symptoms. Prescriptions: Cephalexin [Keflex] 500 mg PO Q6H #40 cap Ibuprofen [Motrin] 600 mg PO Q8HR PRN #30 tab PRN Reason: Pain Is patient prescribed a controlled substance at d/c from ED?: No Referrals: Hua Saul DO [Primary Care Provider] - 1-2 days Time of Disposition: 10:13
== END 2018-06-11 10:24 | disposition home or self-care (01) ==
LOC: EC 09:37
DX: T81.49XA Infection following a procedure, other surgical site, initial encounter (principal); J45.909 Unspecified asthma, uncomplicated; I10 Essential (primary) hypertension; K21.9 Gastro-esophageal reflux disease without esophagitis; E07.9 Disorder of thyroid, unspecified; F17.200 Nicotine dependence, unspecified, uncomplicated; Z88.2 Allergy status to sulfonamides; Z91.040 Latex allergy status; Z79.52 Long term (current) use of systemic steroids; Z79.899 Other long term (current) drug therapy; Z87.2 Personal history of diseases of the skin and subcutaneous tissue
CPT/HCPCS: 87070; 87205; 99284

== ENCOUNTER 2021-04-11 10:12 | Day surgery (SDC) | payer OTHER ==
[2021-04-09 11:52] VITALS: BMI 24.3
[2021-04-11 10:40] VITALS: RESP 16; TEMP 97.6
[2021-04-11] MEDS: LACTATED RINGERS 1,000 ML IV SCH ×2 (10:49→11:56)
[2021-04-11] MEDS ORDERED: LIDOCAINE 1% INJ 10MG/ML (20 ML MDV) ONE (11:56)
[2021-04-11] MEDS ORDERED: PROPOFOL 10 MG/ML 20 ML VIAL IV ONE (11:56)
--- NOTE | 2021-04-11 12:22 | P.PCN ---
Date of Procedure: 04/11/21 Procedure(s) Performed: Brief history: Patient is a pleasant 60-year-old white female scheduled for an elective upper endoscopy as well as colonoscopy as a part of evaluation of GERD and rectal bleeding with diarrhea for the last 2 years duration. Procedure performed: Esophagogastroduodenoscopy with biopsy Colonoscopy with snare polypectomy Preoperative diagnosis: GERD Diarrhea and rectal bleeding of 2 years duration Anesthesia: MAC Procedure: After informed consent was obtained from the patient was brought into the endoscopy unit and IV sedation was administered by anesthesia under continuous monitoring. Initially upper endoscopy was done. The Olympus GF 160 video endoscope was inserted inserted into the mouth and esophagus intubated without any difficulty and was gradually advanced into the stomach and duodenum and carefully examined. The bulb and second part of the duodenum appeared normal. Biopsies were done from the duodenum to rule out celiac disease. The scope was then withdrawn into the stomach adequately insufflated with air and upon careful examination the antrum had mild gastritis and biopsies were done from this area. The body, cardia and fundus appeared normal. The scope was then withdrawn into the esophagus. The GE junction was located at 40 cm to the incisors. It appeared regular with no erythema erosions or ulcerations. Rest of the esophagus appeared normal. Patient tolerated the procedure well. At this time the patient continued to remain sedation. Initial digital rectal examination was normal. Olympus CF 160 video colonoscope was then inserted into the rectum and gradually advanced to the cecum without any difficulty. Careful examination was performed as the scope was gradually being withdrawn. The prep wasfair.The cecum, ascending colon, transverse colon, descending colon, appeared normal. In the distal sigmoid colon at 35 cm from anal was there was a 2 cm pegylated polyp removed by snare polypectomy. There are scattered sigmoid diverticulosis seen. In the rectum there was a 7-8 mm polyp removed by snare polypectomy. Rest of the sigmoid colon and rectum appeared normal. Retroflexion was performed in the rectum andgrade 2 internal hemorrhoidsre noted. Patient tolerated the procedure well. Impression: 1. Upper endoscopy revealed mild antral gastritis but no evidence of esophagitis or peptic ulcer disease 2. Colonoscopy revealed 2 cm pedunculated sigmoid colon polyp status post polypectomy and 1 cm distal rectal polyp status post polypectomy, moderate sigmoid diverticulosis and grade 2 internal hemorrhoids Recommendations: Findings of this examination were discussed with the patient as well as her family. She was advised to follow with the biopsy results. The biopsy reveals adenoma she can have a repeat colonoscopy in 3 years
[2021-04-11 12:41] VITALS: BP 152/83; PULSE 69
== END 2021-04-11 13:17 | disposition home or self-care (01) ==
LOC: ORWHC2ENDO 10:12
PROVIDERS: ATTEND Internal Medicine Gastroenterology
DX: D12.5 Benign neoplasm of sigmoid colon (principal); K62.1 Rectal polyp; K29.70 Gastritis, unspecified, without bleeding; K21.9 Gastro-esophageal reflux disease without esophagitis; K64.8 Other hemorrhoids; K57.90 Diverticulosis of intestine, part unspecified, without perforation or abscess without bleeding; M19.90 Unspecified osteoarthritis, unspecified site; Z88.2 Allergy status to sulfonamides; Z91.040 Latex allergy status; I10 Essential (primary) hypertension; F17.210 Nicotine dependence, cigarettes, uncomplicated; E07.9 Disorder of thyroid, unspecified; J45.909 Unspecified asthma, uncomplicated; Z79.899 Other long term (current) drug therapy
CPT/HCPCS: 88305; 45385; 43239; J2001; J2704

== ENCOUNTER 2023-06-08 22:09 | Emergency (ER) | payer OTHER ==
[2023-06-08] MEDS ORDERED: MORPHINE SULFATE 4 MG/ML SYRINGE IM STA (22:30)
[2023-06-08 22:31] VITALS: TEMP 98.7
[2023-06-08] MEDS: MORPHINE SULFATE 4 MG/ML SYRINGE IM STA (23:05)
--- NOTE | 2023-06-08 23:33 | ED ---
General Adult HPI - General Chief complaint: Fall Stated complaint: Fall-right shoulder injury Time Seen by Provider: 06/08/23 22:14 Source: patient, RN notes reviewed, old records reviewed Mode of arrival: wheelchair Limitations: no limitations - History of Present Illness Initial comments: Patient is a 62-year-old female with past medical history remarkable for asthma, hypertension, thyroid disorder with a history of a right shoulder replacement proximal and one and half years ago and presents emergency Department complaining of right shoulder pain after fall of her presidents. Patient tripped and fell over presence and landed on her right shoulder. Denies hitting her head. Denies loss consciousness. Has significant right shoulder pain. U nable to move the right shoulder. Denies any numbness in the hand or arm. Presents for further evaluation at this time. Denies any chest pain or shortness breath. Denies any abdominal pain, nausea, vomiting. No other acute complaints at this time. - Related Data Home Medications Medication Instructions Recorded Confirmed Cholecalciferol [Vitamin D3] 2,000 unit PO HS 08/01/14 04/11/21 Levothyroxine Sodium [Synthroid] 50 mcg PO QAM 08/01/14 04/11/21 Montelukast [Singulair] 10 mg PO HS 08/01/14 04/11/21 Biotin [Biotin Disolve] 5,000 mcg PO QAM 07/21/17 04/11/21 Furosemide [Lasix] 40 mg PO QAM 07/21/17 04/11/21 Lisinopril-Hctz 20-12.5 mg 1 tab PO QAM 07/21/17 04/11/21 [Zestoretic 20-12.5] Multivit-Min/Iron/Folic/Lutein 1 tab PO DAILY 07/21/17 04/11/21 [Centrum Silver Women Tablet] Calcium Carbonate [Calcium] 1,200 mg PO HS 04/09/21 04/11/21 Ezetimibe [Zetia] 10 mg PO HS 04/09/21 04/11/21 Omeprazole 40 mg PO QAM 04/09/21 04/11/21 amLODIPine [Norvasc] 10 mg PO HS 04/09/21 04/11/21 Allergies Allergy/AdvReac Type Severity Reaction Status Date / Time latex Allergy Anaphylaxis Verified 04/11/21 10:37 Sulfa (Sulfonamide Allergy Anaphylaxis Verified 04/11/21 10:37 Antibiotics) Review of Systems ROS Statement: Those systems with pertinent positive or pertinent negative responses have been documented in the HPI. Review of Systems: CONST: Denies fever EYES: Denies blurry vision ENT: Denies nasal congestion C/V: Denies Chest pain RESP: Denies shortness of breath GI: Denies abdominal pain : Denies dysuria SKIN: Denies rash. MSK: Endorses right shoulder pain NEURO: Denies headache ROS Other: All systems not noted in ROS Statement are negative. Past Medical History Past Medical History: Asthma, GERD/Reflux, Hyperlipidemia, Hypertension, Osteoa rthritis (OA), Skin Disorder, Thyroid Disorder Additional Past Medical History / Comment(s): "Please be careful with right shoulder, still recovering from reverse total sholuder surgery 10/09". Hx bowel obstruction, hx eczema on hands, frequent leg swelling, petroleum terminal plant operator rectal bleeding, more frequent now, bright red, diarrhea X5-6 months on and off. History of Any Multi-Drug Resistant Organisms: None Reported Past Surgical History: Appendectomy, Joint Replacement Additional Past Surgical History / Comment(s): Right shoulder reverse replacement 10/09, laparotomy to repair lacerated right iliac artery, EGD with dilation, ovarian cyst removal. Past Anesthesia/Blood Transfusion Reactions: Motion Sickness Past Psychological History: No Psychological Hx Reported Smoking Status: Current every day smoker Past Alcohol Use History: Occasional Past Drug Use History: None Reported - Past Family History Father Family Medical History: Cancer Mother Family Medical History: Deep Vein Thrombosis (DVT), Myocardial Infarction ([place]) General Exam - General Exam Comments Initial Comments: General: Appears in moderate distress distress. HEAD: Normal with no signs of head trauma. EYES: PERRLA, EOMI, conjunctiva normal, no discharge. Pupils 3 mm equal bilaterally. ENT: Hearing grossly intact, normal oropharynx. RESPIRATORY: Clear breath sounds bilaterally. No wheezes, rales, or rhonchi. C/V: Regular rate and rhythm. S1 and S2 auscultated, peripheral pulses 2+ and intact throughout ABD: Abd is soft, nontender, nondistended EXT: Reduced range of motion and obvious deformity to the right midshaft and pr oximal humerus. Suspect fracture. Possibly periprosthetic. Neurovascularly intact distal to the injury. Sensation along the entire arm. Decreased range of motion at the shoulder but good range of motion at the elbow as well as hand, wrist, fingers. SKIN: No rashes or lesions observed on exposed skin. NEURO: Alert and oriented 4. Limitations: no limitations Course Vital Signs 06/08/23 06/09/23 22:11 01:23 Temperature 98.7 F Pulse Rate 79 86 Respiratory 16 19 Rate Blood Pressure 125/78 116/68 O2 Sat by Pulse 98 98 Oximetry Procedures - Orthopedic Splinting/Casting Injury #1 Side: right Upper Extremity Injury Location: shoulder Upper Extremity Immobilizer: sling/shoulder immobilizer, posterior splint Additional Comments: right coaptation splint. Neurovascularly intact following splinting. Medical Decision Making - Medical Decision Making Was pt. sent in by a medical professional or institution (JOEY Monteiro, TRADE SHOW COORDINATOR, urgent care, hospital, or half-way...) When possible be specific @ -No Did you speak to anyone other than the patient for history (EMS, parent, family, police, friend...)? What history was obtained from this source @ -No Did you review nursing and triage notes (agree or disagree)? Why? @ -I reviewed and agree with nursing and triage notes Were old charts reviewed (outside hosp., previous admission, EMS record, old EKG, old radiological studies, urgent care reports/EKG's, half-way records)? Report findings @ -No old charts were reviewed Differential Diagnosis (chest pain, altered mental status, abdominal pain women, abdominal pain men, vaginal bleeding, weakness, fever, dyspnea, syncope, headache, dizziness, GI bleed, back pain, seizure, CVA, palpatations, mental health, musculoskeletal)? @ -Differential Musculoskeletal Muscular strain, contusion, ligament sprain, fracture, arthritis, septic arthritis, bursitis, cellulitis, muscle spasm, nerve compression, DVT, arterial occlusion, herpes zoster, electrolyte abnormality, tumor.... This is not meant to be in all inclusive list EKG interpreted by me (3pts min.). @ -None done X-rays interpreted by me (1pt min.). @ -Right humerus and shoulder x-ray reveals a periprosthetic fracture of the midshaft of the humerus. I also suspect an injury to the artificial shoulder joint itself, as it appears that the river shoulder ball is out of place. CT interpreted by me (1pt min.). @ -None done U/S interpreted by me (1pt. min.). @ -None done What testing was considered but not performed or refused? (CT, X-rays, U/S, labs)? Why? @ -None What meds were considered but not given or refused? Why? @ -None Did you discuss the management of the patient with other professionals (professionals i.e. Dr., PA, TRADE SHOW COORDINATOR, lab, RT, psych nurse, social welfare research worker, grievance manager, teacher, antisubmarine weapons officer, outpatient case manager)? Give summary @ -[facility]. Accepting physician is trauma attending Dr. Farfan. ER accepting physician is Dr. Sloan. Was smoking cessation discussed for >3mins.? @ -No Was critical care preformed (if so, how long)? @ -No Were there social determinants of health that impacted care today? How? (Homelessness, low income, unemployed, alcoholism, drug addiction, transportation, low edu. Level, literacy, decrease access to med. care, retirement, rehab)? @ -No Was there de-escalation of care discussed even if they declined (Discuss DNR or withdrawal of care, Hospice)? DNR status @ -No What co-morbidities impacted this encounter? (DM, HTN, Smoking, COPD, CAD, Cancer, CVA, ARF, Chemo, Hep., AIDS, mental health diagnosis, sleep apnea, morbid obesity)? @ -None Was patient admitted / discharged? Hospital course, mention meds given and route, prescriptions, significant lab abnormalities, going to OR and other pertinent info. @ -Based on the patient's presentation and physical exam, I'm concerned for fracture of the right shoulder. Does not meet criteria for trauma activation. Does have a history of an artificial right shoulder. We will obtain x-ray of the right shoulder and she will be given IV morphine. Patient agreement this plan. Vital signs within acceptable limits. X-ray does show a periprosthetic fracture the right shoulder and I do suspect also injury to the ball of the refer shoulder replacement on the right side as well. I discussed this with the patient. Shoulder replacement was done by Dr. Wilson at [facility] and she is requesting transfer there at this time. She'll go via EMS. Patient was successfully placed in a coaptation splint and placed in a sling. Neurovascular intact following the procedure. Basic labs were obtained. She received additional analgesic medications.We called [facility] who accepted the transfer. Accepting physician is trauma attending Dr. Farfan. ER accepting physician is Dr. Sloan. There was a delay in transfer, as a higher priority patient did require transfer prior to this patient. Undiagnosed new problem with uncertain prognosis? @ -No Drug Therapy requiring intensive monitoring for toxicity (Heparin, Nitro, Insulin, Cardizem)? @ -No Were any procedures done? @ -Coaptation splint the right arm Diagnosis/symptom? @ -Right periprosthetic shoulder and humerus fracture, mechanical fall Acute, or Chronic, or Acute on Chronic? @ -Acute Uncomplicated (without systemic symptoms) or Complicated (systemic symptoms)? @ -Complicated Side effects of treatment? @ -No Exacerbation, Progression, or Severe Exacerbation? @ -No Poses a threat to life or bodily function? How? (Chest pain, [place], [place], pneumonia, PE, COPD, DKA, ARF, appy, cholecystitis, CVA, Diverticulitis, Homicidal, Suicidal, threat to staff... and all critical care pts) @ -Yes Disposition Clinical Impression: Fall, Periprosthetic fracture around internal prosthetic right shoulder joint Disposition: OTHER INSTITUTION NOT DEFINED Condition: Stable Referrals: Hua Saul DO [Primary Care Provider] - 1-2 days Time of Disposition: 23:29 - Out of Hospital Transfer - Req. Specs Out of Hospital Transfer - Requested Specifics: Other Emergency Center (Transfer to [facility] for higher level trauma care/patient request)
--- NOTE | 2023-06-09 00:01 | XR ---
EXAM: XR Right Shoulder Complete, 2 or More Views CLINICAL HISTORY: ITS.REASON XR Reason: pain TECHNIQUE: Two or more views of the right shoulder. COMPARISON: No relevant prior studies available. FINDINGS: Bones/joints: Right shoulder reverse arthroplasty. Displaced periprosthetic fracture at the distal tip of the humeral stem, which is displaced by approximately 3 cm. Osseous demineralization. No dislocation. Soft tissues: Unremarkable. IMPRESSION: Right shoulder reverse arthroplasty. Displaced periprosthetic fracture at the distal tip of the humeral stem, which is displaced by approximately 3 cm.
[2023-06-09] MEDS ORDERED: MORPHINE SULFATE 4 MG/ML SYRINGE IVP STA (01:11)
[2023-06-09 01:28] VITALS: BP 116/68; PULSE 86; RESP 19
== END 2023-06-09 01:25 | disposition other institution (70) ==
LOC: EC 22:09 → SUPCPDRO 22:09 → EC 06-09 01:25
DX: S42.201A Unspecified fracture of upper end of right humerus, initial encounter for closed fracture (principal); M97.31XA Periprosthetic fracture around internal prosthetic right shoulder joint, initial encounter; I10 Essential (primary) hypertension; J45.909 Unspecified asthma, uncomplicated; E07.9 Disorder of thyroid, unspecified; K21.9 Gastro-esophageal reflux disease without esophagitis; E78.5 Hyperlipidemia, unspecified; F17.200 Nicotine dependence, unspecified, uncomplicated; Z79.890 Hormone replacement therapy; Z79.899 Other long term (current) drug therapy; Z88.2 Allergy status to sulfonamides; Z91.040 Latex allergy status; Z96.611 Presence of right artificial shoulder joint; W01.0XXA Fall on same level from slipping, tripping and stumbling without subsequent striking against object, initial encounter
CPT/HCPCS: 73020; 29105; 99285; 96374; 96372 ×2; J2270